=== PATIENT | female | born 1980 | race Caucasian/White ===

== ENCOUNTER 2019-03-28 12:30 | Emergency (ER) | payer MEDICAID ==
[~2019-03-28] VITALS: Ht 152.4 cm; Wt 41.6 kg
[2019-03-28 12:38] VITALS: Ht 152.4 cm; Wt 41.6 kg
--- NOTE | 2019-03-28 13:33 | ERD ---
ER Documentation Chief Complaint Chief Complaint vaginal bleeding x2days worse today referred by OB currently 4wks preg HPI This is a 39-year-old female presenting for vaginal bleeding x2 weeks. Patient is currently 4 weeks notes her last menstrual period was 3 weeks ago and since has been spotting daily. Notes spotting is only when wiping, denies need for tampons or pads, denies clots. Patient presented earlier with her PCP who referred her to the ED to rule out an ectopic . Patient denies any current pelvic pain, discharge, foul odor. No nausea, vomiting, abdominal pain. ROS All systems reviewed and are negative except as per history of present illness. Allergies Allergies: Coded Allergies: No Known Allergy (Unverified , 03/28/19) PMhx/Soc Medical and Surgical Hx: pt denies Medical Hx, pt denies Surgical Hx Hx Substance Use: No Hx Tobacco Use: No Smoking Status: Never smoker FmHx Family History: No diabetes, No coronary disease, No other Physical Exam Vitals Vital Signs Date Temp Pulse Resp B/P (MAP) Pulse Ox O2 O2 Flow FiO2 Time Delivery Rate 03/28/19 98.2 79 20 106/58 100 Room Air 15:44 (74) 03/28/19 98.5 86 20 100/59 100 12:38 (73) Physical Exam Const: No acute distress Head: Atraumatic Eyes: Normal Conjunctiva ENT: Normal External Ears, Nose and Mouth. Neck: Full range of motion. No meningismus. Resp: Clear to auscultation bilaterally. No wheezes, rales, rhonchi. Cardio: Regular rate and rhythm, no murmurs Abd: Soft, non tender, non distended. Normal bowel sounds. No right lower quadrant or suprapubic tenderness to palpation. : No visible discharge. No lesions, masses, or ulcerations. No cervical motion tenderness. No visible discharge. Cervical OS is closed with no visible POC, however significant bleeding is visualized in the vaginal vault. Skin: No petechiae or rashes Back: No midline or flank tenderness. No CVA tenderness. Ext: No cyanosis, or edema Neur: Alert and oriented x3. Appropriate speech, mood and affect. Face is symmetric. Speech is normal. CN II-XII intact. Moves all extremities equally. Ambulates with a strong, steady gait Psych: Normal Mood and Affect Result Diagram: 03/28/19 1429 03/28/19 1429 Results 24 hrs Laboratory Tests Test 03/28/19 13:39 03/28/19 14:29 POC Beta HCG, Qualitative POSITIVE White Blood Count 4.7 10^3/ul Red Blood Count 4.64 10^6/ul Hemoglobin 13.2 g/dl Hematocrit 41.2 % Mean Corpuscular Volume 88.8 fl Mean Corpuscular Hemoglobin 28.4 pg Mean Corpuscular Hemoglobin Concent 32.0 g/dl Red Cell Distribution Width 14.2 % Platelet Count 168 10^3/UL Mean Platelet Volume 11.1 fl Immature Granulocytes % 0.200 % Neutrophils % 60.9 % Lymphocytes % 31.7 % Monocytes % 7.0 % Eosinophils % 0.0 % Basophils % 0.2 % Nucleated Red Blood Cells % 0.0 /100WBC Immature Granulocytes # 0.010 10^3/ul Neutrophils # 2.9 10^3/ul Lymphocytes # 1.5 10^3/ul Monocytes # 0.3 10^3/ul Eosinophils # 0.0 10^3/ul Basophils # 0.0 10^3/ul Nucleated Red Blood Cells # 0.0 10^3/ul Prothrombin Time 15.1 Sec Prothrombin Time Ratio 1.2 INR International Normalized Ratio 1.18 Activated Partial Thromboplast Time 35.8 Sec Urine Color STRAW Urine Clarity SLIGHTLY CLOUDY Urine pH 7.0 Urine Specific [place] 1.002 Urine Ketones NEGATIVE mg/dL Urine Nitrite NEGATIVE mg/dL Urine Bilirubin NEGATIVE mg/dL Urine Urobilinogen NEGATIVE mg/dL Urine Leukocyte Esterase NEGATIVE Eliza/ul Urine Microscopic RBC 0 /HPF Urine Microscopic WBC 1 /HPF Urine Squamous Epithelial Cells FEW /HPF Urine Bacteria FEW /HPF Urine Hemoglobin 3+ mg/dL Urine Glucose NEGATIVE mg/dL Urine Total Protein NEGATIVE mg/dl Sodium Level 141 mmol/L Potassium Level 4.5 mmol/L Chloride Level 108 mmol/L Carbon Dioxide Level 24 mmol/L Anion Gap 9 Blood Urea Nitrogen 9 mg/dl Creatinine 0.57 mg/dl Est Glomerular Filtrat Rate mL/min > 60 mL/min Glucose Level 94 mg/dl Calcium Level 10.0 mg/dl Total Bilirubin 0.6 mg/dl Direct Bilirubin 0.00 mg/dl Indirect Bilirubin 0.6 mg/dl Aspartate Amino Transf (AST/SGOT) 27 IU/L Alanine Aminotransferase (ALT/SGPT) 20 IU/L Alkaline Phosphatase 56 IU/L Total Protein 7.6 g/dl Albumin 4.4 g/dl Globulin 3.20 g/dl Albumin/Globulin Ratio 1.37 Beta HCG, Quantitative 323.5 mIU/ml Procedures/MDM PROCEDURE: US Pelvis. CLINICAL INDICATION: vaginal bleeding TECHNIQUE: Multiple sonographic images of the pelvis were obtained utilizing a transabdominal technique. The images were reviewed on a PACS workstation. COMPARISON: None. FINDINGS: The uterus is normal in size and demonstrates a normal appearance of the myometrium. The uterus measures 7.8 x 5.0 x 6.0 cm in size. The endometrial stripe is heterogeneous in appearance and has the thickness of 6 mm. No intrauterine gestation is noted. There is a tiny amount of fluid within the endometrium. Normal Doppler flow is identified in both ovaries. The right ovary measures 4.9 x 4.2 x 4.2 cm. There is a 4.1 cm hemorrhagic cyst in the right ovary. The left ovary measures 2.8 x 1.2 x 1.9 cm. There is a small amount of free fluid in the right adnexa. RPTAT: AA IMPRESSION: No intrauterine gestation visualized. Heterogeneous endometrium with a tiny amount of fluid within. Hemorrhagic cyst in the right ovary with a small amount of free fluid in the right adnexa. Differential diagnosis includes early , missed or ectopic . Follow-up ultrasound and HCG levels is recommended. MDM: This is an otherwise healthy 39-year-old female who presents with complaints of vaginal bleeding x2 weeks. She notes her last menstrual period was 3 weeks ago and has since been spotting daily. Exam no visible POC. Ultrasound inconclusive for possible ectopic, threatened/spontaneous , and cannot confirm . Currently in no acute distress. No pelvic pain. Patient stable at discharge at this time. Advised to follow-up and return to ED within 48 hours for repeat hCG and ultrasound to confirm possible ectopic and/or threatened spontaneous . Patient and expressed verbal understanding and agreement to treatment plan, all questions addressed and answered. Patient given strict ED return precautions and is to return should pelvic pain or worsening bleeding increase in severity as soon as possible. Departure Diagnosis: Primary Impression: Vaginal bleeding in patient at less than 20 weeks gestation Condition: Stable Patient Instructions: Bleeding During Early ANTONIO BOTELLO PA-C March 28, 2019 13:33
[2019-03-28 15:44] VITALS: BP 106/58; PULSE 79; RESP 20
== END 2019-03-28 15:40 | disposition home or self-care (01) ==
LOC: FTE 12:30
DX: O20.9 Hemorrhage in early pregnancy, unspecified (principal); Z3A.01 Less than 8 weeks gestation of pregnancy
CPT/HCPCS: 76801; 80053; 81001; 81025; 84702; 85025; 85610; 85730; 86900; 86901; Z7502

== ENCOUNTER 2019-03-31 13:11 | Emergency (ER) | payer MEDICAID ==
[~2019-03-31] VITALS: Wt 40.9 kg
[2019-03-31 13:16] VITALS: BP 132/82; PULSE 78; RESP 18
--- NOTE | 2019-03-31 15:44 | ERD ---
ER Documentation Chief Complaint Chief Complaint 4 WEEKS , HERE FOR US HPI This is a 39-year-old female who was seen here 3 days ago for vaginal bleeding during . She is here for repeat ultrasound and beta hCG. She still states she has very mild bleeding without any clots. The bleeding is intermi ttent. She has no pain. No dysuria or frequency. No fever nausea or vomiting. ROS All systems reviewed and are negative except as per history of present illness. Allergies Allergies: Coded Allergies: No Known Allergy (Unverified , 03/28/19) PMhx/Soc Medical and Surgical Hx: pt denies Medical Hx, pt denies Surgical Hx Hx Alcohol Use: No Hx Substance Use: Yes (marijuana) Hx Tobacco Use: Yes Smoking Status: Current some day smoker FmHx Family History: No diabetes Physical Exam Vitals Vital Signs Date Temp Pulse Resp B/P (MAP) Pulse Ox O2 O2 Flow FiO2 Time Delivery Rate 03/31/19 99.0 78 18 132/82 99 13:16 (99) Physical Exam INITIAL VITAL SIGNS: Reviewed by me GENERAL: Awake, alert and oriented x 4, well appearing, nontoxic, speaking in full sentences. No acute distress HEAD: Atraumatic NECK: Supple. No masses. Full range of motion. No meningismus. No midline tenderness. RESPIRATORY: Clear to auscultation bilaterally. Symmetric chest wall rise. No wheezing or rales. No accessory muscle use. CV: Regular rate and rhythm. No murmurs, rubs, or gallops. ABDOMEN: Soft, non-distended. Nontender. Negative [place]. Negative McBurneys point tenderness. No CVA tenderness bilaterally. No guarding. No rebound. Results 24 hrs Laboratory Tests Test 03/31/19 14:16 03/31/19 14:28 Urine Color STRAW Urine Clarity SLIGHTLY CLOUDY Urine pH 7.0 Urine Specific [place] 1.006 Urine Ketones NEGATIVE mg/dL Urine Nitrite NEGATIVE mg/dL Urine Bilirubin NEGATIVE mg/dL Urine Urobilinogen NEGATIVE mg/dL Urine Leukocyte Esterase NEGATIVE Eliza/ul Urine Microscopic RBC 1 /HPF Urine Microscopic WBC 1 /HPF Urine Squamous Epithelial Cells FEW /HPF Urine Bacteria FEW /HPF Urine Hemoglobin 3+ mg/dL Urine Glucose NEGATIVE mg/dL Urine Total Protein NEGATIVE mg/dl Beta HCG, Quantitative 343.4 mIU/ml Procedures/MDM Is a 39-year-old female who is here for follow-up beta-hCG testing. She was seen here 3 days ago and her beta hCG was 323 today it has increased but only slightly to 343. Her ultrasound shows no findings of intrauterine or ectopic . She has a stable, probably benign right ovarian hemorrhagic cyst and overall there is no interval changes. Recommended she return in 2 or 3 more days for follow-up repeat exam or sooner if she has new or worsening pain. Patient counseled regarding my diagnostic impression and care plan. Prior to discharge all questions answered. Pt agrees with treatment plan and understands strict return precautions. Pt is instructed to follow up with primary care provider within 24-48 hours. Precautionary instructions provided including instructions to return to the ER if not improving or for any worsening or changing symptoms or concerns. Departure Diagnosis: Primary Impression: Vaginal bleeding in patient at less than 20 weeks gestation Condition: Stable MOISE FINN PA-C March 31, 2019 15:44
== END 2019-03-31 15:48 | disposition home or self-care (01) ==
LOC: FTE 13:11
DX: O20.9 Hemorrhage in early pregnancy, unspecified (principal); R10.2 Pelvic and perineal pain; O99.331 Smoking (tobacco) complicating pregnancy, first trimester; F17.210 Nicotine dependence, cigarettes, uncomplicated; Z3A.01 Less than 8 weeks gestation of pregnancy
CPT/HCPCS: 76801; 81001; 84702; Z7502

== ENCOUNTER 2019-04-04 09:36 | Inpatient (IN) | payer MEDICAID ==
[~2019-04-04] VITALS: Ht 157.5 cm; Wt 42.2 kg
[2019-04-04] MEDS ORDERED: ACETAMINOPHEN 500 MG TAB PO STA (10:07)
--- NOTE | 2019-04-04 10:36 | ERD ---
ER Documentation Chief Complaint Chief Complaint PT c/o VB X 3 weeks and 5 weeks . Follow up visit. HPI 39-year-old G5, P3 female presents with complaint of right lower quadrant abdominal pain and spotting for the past 3 weeks. Patient states that she is currently 5 weeks with a last menstrual of March 11, 2018. She was just here 3 days ago and there was no intrauterine seen on ultrasound. Patient states that she had pain in the right side acutely last night which self resolved. Going through 1 pad a day. States that she took 2 doses of optalgen which I informed her is not indicated in and she should discontinue. Denies any current abdominal pain. Denies any vomiting, fevers, diarrhea, lightheadedness, palpitations. ROS All systems reviewed and are negative except as per history of present illness. Allergies Allergies: Coded Allergies: No Known Allergy (Unverified , 03/28/19) PMhx/Soc Hx Alcohol Use: No Hx Substance Use: Yes (marijuana) Hx Tobacco Use: Yes FmHx Family History: No diabetes, No coronary disease, No other Physical Exam Vitals Vital Signs Date Temp Pulse Resp B/P (MAP) Pulse Ox O2 O2 Flow FiO2 Time Delivery Rate 04/04/19 98.1 57 18 100/50 100 Room Air 16:50 (67) 04/04/19 98.0 65 18 122/47 100 09:38 (72) Physical Exam Const: No acute distress Head: Atraumatic Eyes: Normal Conjunctiva ENT: Normal External Ears, Nose and Mouth. Neck: Full range of motion. No meningismus. Resp: Clear to auscultation bilaterally Cardio: Regular rate and rhythm, no murmurs Abd: Soft, non tender, non distended. Normal bowel sounds. No McBurney's. No Knapp's. Skin: No petechiae or rashes Back: No midline or flank tenderness Ext: No cyanosis, or edema Neur: Awake and alert Psych: Normal Mood and Affect Result Diagram: 04/04/19 1037 Results 24 hrs Laboratory Tests Test 04/04/19 10:37 White Blood Count 3.7 10^3/ul Red Blood Count 4.47 10^6/ul Hemoglobin 12.7 g/dl Hematocrit 39.2 % Mean Corpuscular Volume 87.7 fl Mean Corpuscular Hemoglobin 28.4 pg Mean Corpuscular Hemoglobin Concent 32.4 g/dl Red Cell Distribution Width 14.4 % Platelet Count 149 10^3/UL Mean Platelet Volume 11.5 fl Immature Granulocytes % 0.300 % Neutrophils % 52.9 % Lymphocytes % 34.0 % Monocytes % 12.8 % Eosinophils % 0.0 % Basophils % 0.0 % Nucleated Red Blood Cells % 0.0 /100WBC Immature Granulocytes # 0.010 10^3/ul Neutrophils # 2.0 10^3/ul Lymphocytes # 1.3 10^3/ul Monocytes # 0.5 10^3/ul Eosinophils # 0.0 10^3/ul Basophils # 0.0 10^3/ul Nucleated Red Blood Cells # 0.0 10^3/ul Urine Color RED Urine Clarity SLIGHTLY CLOUDY Urine pH 6.0 Urine Specific [place] 1.013 Urine Ketones NEGATIVE mg/dL Urine Nitrite NEGATIVE mg/dL Urine Bilirubin NEGATIVE mg/dL Urine Urobilinogen NEGATIVE mg/dL Urine Leukocyte Esterase NEGATIVE Eliza/ul Urine Microscopic RBC 10 /HPF Urine Microscopic WBC 2 /HPF Urine Squamous Epithelial Cells MODERATE /HPF Urine Bacteria FEW /HPF Urine Mucus FEW /HPF Urine Hemoglobin 3+ mg/dL Urine Glucose NEGATIVE mg/dL Urine Total Protein NEGATIVE mg/dl Beta HCG, Quantitative 366.5 mIU/ml Current Medications Medications Dose Sig/Nick Start Time Status Last (Trade) Ordered Route PRN Stop Time Admin Dose Reason Admin 1,000 mg ONCE STAT 04/04/19 DC 04/04/19 Acetaminophen PO 10:07 04/04/19 10:20 (Tylenol 10:08 Tab) Procedures/MDM DIAGNOSTIC IMAGING REPORT Patient: STEFANIE BEDOLLA : 1980 Age: 39 Sex: F [id number] DOS: 04/04/19 1007 Ordering MD: NADIA BROOKS Location: [facility] Room/Bed: PROCEDURE: US OB. CLINICAL INDICATION: Vaginal bleeding in . TECHNIQUE: Transabdominal and endovaginal imaging of the uterus is available for review COMPARISON: None available FINDINGS: No intrauterine is identified. The endometrial stripe is homogeneous and measures 3.8 mm in thickness. The uterus is otherwise unremarkable. There is a right adnexal cyst measuring 4.8 x 4.4 x 4.3 cm with low-level internal echoes and central area of increased echogenicity. Moderate free fluid is noted within the pelvis. IMPRESSION: 1. No intrauterine identified. There are no adnexal masses. Correlation with serial beta HCGs and repeat pelvic ultrasound as clinically indicated, is recommended, as ectopic is not excluded on this examination. 2. Moderate free fluid in the pelvis. 3. 4.8 x 4.4 x 4.3 cm right adnexal complex cyst, likely a hemorrhagic cyst. Close attention on follow-up imaging is advised. RPTAT: HH .Maria Isabel Aguilera MD, MD Date Time Electronically viewed and signed by .Maria Isabel Aguilera MD, MD on 04/04/2019 12:33 .G/ CC: NADIA BROOKS [id number] MDM: Beta-hCG is not been doubling every 2 days but rather has been remaining low in the 400s over last 3 visits which occurred over time of appx one week. In addition the hemorrhagic cyst has been growing, therefore there is concern for possible ectopic. I spoke to Dr Trejo around 1 PM and she stated she will come to see the patient. Patient was seen approximately 6:[address] Trejo relayed to me that she was going to admit the patient for observation and possible surgery. Patient admitted. Departure Diagnosis: Primary Impression: Vaginal bleeding in patient at less than 20 weeks gestation Additional Impression: Pelvic pain affecting Trimester: first trimester Qualified Codes: O26.891 - Other specified related conditions, first trimester; R10.2 - Pelvic and perineal pain Condition: Serious NADIA BROOKS April 04, 2019 10:36
[2019-04-04] MEDS ORDERED: CEFAZOLIN 2 GM/50 ML (PMX) 50 ML IVPB ONE (19:00)
--- NOTE | 2019-04-04 19:00 | CONS ---
Assessment/Plan Assessment/Plan Hospital Course (Demo Recall) Lower abdominal pain Positive test, hCG plateaued and did not rise appropriately consistent with nonviable Cannot rule out SAB versus ectopic Adnexal cystic mass with moderate amount of free fluid in the pelvis. Patient hemodynamically stable I discussed with the patient possibility of ectopic cannot be ruled out I recommended the patient to proceed with D&C with or without laparoscopy/laparotomy for evaluation o and rule out ectopic as well as possible ovarian cystectomy versus salpingectomy versus salpingostomy Risk and benefit of procedure including risk of infection, bleeding, damage to surrounding structures including bowel and bladder and risk of blood transfusion including but not limited to blood borne infection including HIV, hepatitis B and C and transfusion reaction discussed the patient in detail and informed consent was obtained. Patient was understanding all above risks. All questions were answered to patient's best satisfaction. 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 Patient understands the possibility of losing A tube or ovary or both. She also understands possibility of risk of blood transfusion. Possibility of a conversion of the procedure to open laparotomy has been discussed with the patient. Patient agreed with above plan. She also understands that her case will be signed out to the upcoming labors and plan of care may slightly change depends on the upcoming banker mason and that will be discussed with her. Consultation Date/Type/Reason Admit Date/Time March 31, 2019 Date of Consultation: April 04, 2019 Type of Consult Gynecology consultation Reason for Consultation Rule out ectopic Date/Time of Note DATE: 04/04/19 TIME: 18:51 Hx of Present Illness 39-year-old G5, P3 female with amenorrhea for 4 weeks and 4 days and positive test, presented to emergency room with complaint of lower abdominal pain. She had serum hCG few days ago and her level was 300s. Her serum hCG today is a still in 300s range. Patient reported 10 out of 10 pain in the right lower abdomen with radiation to the hip and thigh. She denies any dizziness, lightheadedness, shortness of breath or chest pain. Ultrasound that showed evidence of free fluid in the pelvis with no IUP and a adnexal cyst. Review of serum hCG showed that it is been plateaued. Patient reports started having light vaginal bleeding. Subjective hx not possible: other Constitutional: no complaints, improved; No chills, No diaphoresis, No disoriented, No febrile, No poor po, No requiring IVF, No requiring O2, No other Eyes: No no complaints, No pain, No discharge, No redness, No visual change, No other ENT: No no complaints, No bleeding, No pain, No congestion, No discharge, No dysphagia, No sore throat, No other Respiratory: No no complaints, No pain, No cough, No pleuritic pain, No shortness of breath, No sputum, No wheezing, No other Cardiovascular: No no complaints, No chest pain, No edema, No lightheadedness, No orthopenea, No palpitations, No paroxysmal nocturnal dyspnea, No other Gastrointestinal: pain, blood; No no complaints, No constipation, No decreased appetite, No diarrhea, No flatus, No nausea, No passing stool, No vomiting, No other Genitourinary: bleeding; No no complaints, No dysuria, No discharge, No flank pain, No hematuria, No other Musculoskeletal: No no complaints, No back pain, No bone/joint pain, No neck pain, No restricted range of motion, No swelling, No other Skin: No no complaints, No bruising, No erythema, No laceration, No pruritis, No rash, No skin lesions, No other Neurologic: No no complaints, No confusion, No dizziness, No focal-weakness, No headache, No syncope, No seizure, No other Endocrine: No no complaints, No polyuria, No polydypsia, No dry skin, No temp intolerance, No other Lymphatic: No no complaints, No adenopathy, No tender nodes, No lymphadema, No other Psychological: No no complaints, No nl mood/affect, No anxiety, No confusion, No depression, No suicidal, No other Immunologic: No no complaints, No immunodeficiency, No pruritis, No rhinitis, No urticaria, No other Past Medical History Past medical history: Denies any medical problem 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 Used to smoke 3 to 4 cigarettes a day. Denies drinking alcohol or using any drugs. Smoking Status: Light tobacco smoker Exam/Review of Systems Exam Vitals Vital Signs Date Temp Pulse Resp B/P (MAP) Pulse Ox O2 O2 Flow FiO2 Time Delivery Rate 04/04/19 98.1 57 18 100/50 100 Room Air 16:50 (67) Constitutional: alert, oriented, well developed Psych: no complaints, nl mood/affect Head: normocephalic, atraumatic Eyes: nl conjunctiva, EOMI ENMT: nl external ears & nose, nl lips & teeth Neck: supple Respiratory: clear to auscultation, normal air movement Cardiovascular: regular rate and rhythm, nl pulses Gastrointestinal: soft, nl liver, spleen, non-tender Genitourinary - Female: other (There is a small amount of dark blood in the vault. There is no CMT tenderness. There is no tenderness in adnexa. Uterus is about 9 to 10 cm size and retroverted.) Musculoskeletal: nl extremities to inspection Extremities: normal pulses Neurological: WATER TENDER II-XII intact Results Result Diagram: 04/04/19 1037 Results 24hrs Laboratory Tests Test 04/04/19 10:37 White Blood Count 3.7 #L Red Blood Count 4.47 Hemoglobin 12.7 Hematocrit 39.2 Mean Corpuscular Volume 87.7 Mean Corpuscular Hemoglobin 28.4 L Mean Corpuscular Hemoglobin Concent 32.4 Red Cell Distribution Width 14.4 Platelet Count 149 Mean Platelet Volume 11.5 H Immature Granulocytes % 0.300 Neutrophils % 52.9 Lymphocytes % 34.0 Monocytes % 12.8 H Eosinophils % 0.0 Basophils % 0.0 Nucleated Red Blood Cells % 0.0 Immature Granulocytes # 0.010 Neutrophils # 2.0 Lymphocytes # 1.3 Monocytes # 0.5 Eosinophils # 0.0 Basophils # 0.0 Nucleated Red Blood Cells # 0.0 Urine Color RED Urine Clarity SLIGHTLY CLOUDY A Urine pH 6.0 Urine Specific [place] 1.013 Urine Ketones NEGATIVE Urine Nitrite NEGATIVE Urine Bilirubin NEGATIVE Urine Urobilinogen NEGATIVE Urine Leukocyte Esterase NEGATIVE Urine Microscopic RBC 10 H Urine Microscopic WBC 2 Urine Squamous Epithelial Cells MODERATE Urine Bacteria FEW A Urine Mucus FEW A Urine Hemoglobin 3+ H Urine Glucose NEGATIVE Urine Total Protein NEGATIVE Beta HCG, Quantitative 366.5 Imaging Imaging AMENDMENT: 04/04/2019 3:29:50 PM Maria Isabel Aguilera M.d Flow is demonstrated to the right ovary. PROCEDURE: US OB. CLINICAL INDICATION: Vaginal bleeding in . TECHNIQUE: Transabdominal and endovaginal imaging of the uterus is available for review COMPARISON: None available FINDINGS: No intrauterine is identified. The endometrial stripe is homogeneous and measures 3.8 mm in thickness. The uterus is otherwise unremarkable. There is a right adnexal cyst measuring 4.8 x 4.4 x 4.3 cm with low-level internal echoes and central area of increased echogenicity. Moderate free fluid is noted within the pelvis. IMPRESSION: 1. No intrauterine identified. There are no adnexal masses. Correlation with serial beta HCGs and repeat pelvic ultrasound as clinically indicated, is recommended, as ectopic is not excluded on this examination. 2. Moderate free fluid in the pelvis. 3. 4.8 x 4.4 x 4.3 cm right adnexal complex cyst, likely a hemorrhagic cyst. Close attention on follow-up imaging is advised. ETIENNE ALONZO MD April 04, 2019 19:00
[2019-04-04] MEDS: LACTATED RINGER'S 1,000 ML IV SCH (19:40)
[2019-04-04 22:40] VITALS: BP 100/58; PULSE 59; RESP 18
[2019-04-04] MEDS ORDERED: KETOROLAC 30 MG INJ IV STA (22:46)
[2019-04-04 23:38] VITALS: Ht 157.5 cm; Wt 42.2 kg
[2019-04-05] VITALS (18 sets, daily range): BP systolic 91–139; BP diastolic 44–69; PULSE 56–88; RESP 11–22
--- NOTE | 2019-04-05 00:51 | QN ---
Documentation Comment preop note 39y.o A1 lmp 03/04/19 lasted for 7days had vaginal bleeding which started 03/20/19 again up to now x3 ED visit 03/28 and 03/31 and today , x3 U/S no IUP Rt ovarian cyst 4.8cm (poss hemorrhagic cyst but poss dermoid?) with moderate amount free fluid in cul de sac uterus has sonolucency ? echogenecity plan suction curettage f/b exp lap poss rt ovarian cystectomy poss RSO and further indicated informed consent obtained after explain the procedure in detail ,and risks from surgery and anesthesia from minor to serious APPLE PATTERSON MD April 05, 2019 00:51
[2019-04-05] MEDS ORDERED: PROPOFOL 0 ML ONE (01:28)
[2019-04-05] MEDS ORDERED: MIDAZOLAM 1 MG/ML 2 ML INJ ONE ×2 (01:29→11:07)
[2019-04-05] MEDS ORDERED: FENTAnyl 50 MCG/ML VIAL ONE ×2 (01:29→11:07)
[2019-04-05] MEDS ORDERED: ONDANSETRON 4 MG INJ ONE ×2 (01:29→11:07)
[2019-04-05] MEDS ORDERED: KETOROLAC 30 MG INJ ONE (01:30)
[2019-04-05] MEDS ORDERED: ROCURONIUM 50 MG INJ ONE ×2 (01:34→11:06)
[2019-04-05] MEDS: LACTATED RINGER'S 1,000 ML IV SCH ×3 (06:22→16:20)
--- NOTE | 2019-04-05 11:04 | PREAC ---
Date/Time of Note Date/Time of Note DATE: 04/05/19 TIME: 11:01 Anesthesia Eval and Record Evaluation Time Pre-Procedure Interview DATE: 04/05/19 TIME: 11:01 Age 39 Sex female NPO: 8 hrs Preoperative diagnosis right ovarian cyst, rule out ectopic Planned procedure suction d&c, exp lap possible right salpingectomy, possible right SO Past Medical History Past Medical History: Includes : : (5), Para: (3), Gestational age: (4-5 weeks) Surgery & Anesthesia Issues No known issue Meds Anticoagulation: No Beta Norberto within 24 hr: No Reason Beta Norberto not given: Pt. not on B-Norberto Current Medications Lactated Ringer's 1,000 ml @ 125 mls/hr Q8H IV Last administered on 04/05/19at 06:22; Admin Dose 125 MLS/HR; Start 04/04/19 at 18:48 Meds reviewed: Yes Allergies Coded Allergies: No Known Allergy (Unverified , 03/28/19) Allergies Reviewed: Yes Labs/Studies Labs Reviewed: Reviewed by anesthesiologist Result Diagram: 04/04/19201004/04/192010 Laboratory Tests 04/04/19 20:11 Blood Bank Test 04/04/19 20:11 Antibody Screen NEGATIVE Blood Type AB POSITIVE test: N/A Pre-procedure Exam Last vitals Vital Signs Date Temp Pulse Resp B/P (MAP) Pulse Ox O2 O2 Flow FiO2 Time Delivery Rate 04/05/19 98.6 78 18 104/59 100 Room Air 07:50 (74) Airway: Adequate mouth opening, Adequate thyromental dist Mallampati: Mallampati II Teeth: Normal Lung: Normal Heart: Normal ASA Physical Status ASA physical status: 2 Emergency: E Planned Anesthetic General/MAC: ETT Neuraxial: Spinal Planned Pain Management Sub-arachniod narcotics, Parenteral pain med Pre-operative Attestations Prior to commencing anesthesia and surgery, the patient was re-evaluated, there was verification of: *The patient's identity *The results of appropriate recent lab work and preoperative vital signs *The above evaluation not changing prior to induction *Anesthetic plan, risk benefits, alternative and complications discussed with patient/family; questions answered; patient/family understands, accepts and wishes to proceed. Drake Chandra M.D. April 05, 2019 11:04
[2019-04-05] MEDS ORDERED: CEFAZOLIN 1 GM INJ ONE (11:06)
[2019-04-05] MEDS ORDERED: NEOSTIGMINE 3 MG/3 ML SYRINGE ONE (11:06)
[2019-04-05] MEDS ORDERED: GLYCOPYRROLATE 0.4 MG INJ ONE (11:06)
[2019-04-05] MEDS ORDERED: PROPOFOL 20 ML ONE (11:06)
[2019-04-05] MEDS ORDERED: DEXAMETHASONE 4 MG/ML 5 ML INJ ONE (11:07)
[2019-04-05] MEDS ORDERED: morphine SULFATE/PF (10 MG/10 ML) INJ ONE (11:13)
[2019-04-05] MEDS ORDERED: PHENYLephrine (100 MCG/ML) 10ML SYG ONE (11:45)
--- NOTE | 2019-04-05 13:23 | SIPON ---
Date/Time of Note Date/Time of Note DATE: 04/05/19 TIME: 13:18 Operative Report Preoperative Diagnosis Rt hemorrhagi c cyst , R/o ectopic pregnanacy Postoperative Diagnosis hemoperitoneum ruptured right hemorrhagic cyst right tubal ( ampullary) cervical lesion at 1oclock Operation/Procedure Performed suction curettage cervical punch biopsy exp lap right ovarian cystectomy right salphingectomy Surgeon see signature line pharmacy sales assistant LEW jiménez Anesthesia: general, spinal Estimated blood loss: 10 - 50 ml's Transfusion Required none Specimen cervical biopsy uterine curettings right ovarian cyst right tube with intact ectopic pregnanacy Grafts/Implants none Complications none APPLE PATTERSON MD April 05, 2019 13:23
--- NOTE | 2019-04-05 13:24 | PAC ---
Date/Time of Note Date/Time of Note DATE: 04/05/19 TIME: 13:23 Post-Anesthesia Notes Post-Anesthesia Note Last documented vital signs Vital Signs Date Temp Pulse Resp B/P (MAP) Pulse Ox O2 O2 Flow FiO2 Time Delivery Rate 04/05/19 98.6 78 18 104/59 100 Room Air 07:50 (74) Activity: WNL Respiratory function: WNL Cardiovascular function: WNL Mental status: Baseline Pain reasonably controlled: Yes Hydration appropriate: Yes Nausea/Vomiting absent: Yes Drake Chandra M.D. April 05, 2019 13:24
[2019-04-05] MEDS ORDERED: NALOXONE (0.4 MG/ML) INJ IV PRN (13:30)
[2019-04-05] MEDS ORDERED: EPHEDrine SULFATE 50 MG/5 ML SYG IV PRN (13:30)
[2019-04-05] MEDS ORDERED: ALBUTEROL 0.083% (NEB) 2.5 MG/3 ML AMP HHN PRN (13:30)
[2019-04-05] MEDS ORDERED: hydrALAzine 20 MG INJ IV PRN (13:30)
[2019-04-05] MEDS ORDERED: TRIMETHOBENZAMIDE 100 MG/ML VIAL IM PRN (13:30)
[2019-04-05] MEDS ORDERED: DIPHENHYDRAMINE 50 MG INJ IV PRN ×2 (13:30)
[2019-04-05] MEDS ORDERED: FENTAnyl 50 MCG/ML VIAL IV PRN ×3 (13:30)
[2019-04-05] MEDS ORDERED: LABETALOL HCL 20MG INJ IV PRN (13:30)
[2019-04-05] MEDS ORDERED: NALBUPHINE HCL (10 MG/1 ML) INJ IV PRN (13:30)
[2019-04-05] MEDS ORDERED: ZOLPIDEM 5 MG TAB PO PRN (13:30)
[2019-04-05] MEDS ORDERED: ONDANSETRON 4 MG INJ IV PRN ×2 (13:30)
[2019-04-05] MEDS ORDERED: OXYCODONE/ACETAMINOPHEN (5/325) TAB PO PRN ×2 (13:30)
[2019-04-05] MEDS ORDERED: MEPERIDINE 25 MG INJ IV PRN (13:30)
[2019-04-05] MEDS ORDERED: IPRATROPIUM (NEB) 0.5 MG/2.5 ML AMP HHN PRN (13:30)
[2019-04-05] MEDS ORDERED: HYDROmorphONE 1 MG/5 ML IV SYRINGE IV PRN ×3 (13:30)
[2019-04-05] MEDS ORDERED: MIDAZOLAM 1 MG/ML 2 ML INJ IV PRN (13:30)
[2019-04-05] MEDS ORDERED: HYDROmorphONE 0.5 MG/0.5 ML SYG IV PRN ×2 (13:30)
[2019-04-05] MEDS: KETOROLAC 30 MG INJ IV PRN (16:52)
[2019-04-05] MEDS ORDERED: METOCLOPRAMIDE 10 MG INJ IV PRN (17:00)
[2019-04-06] MEDS: LACTATED RINGER'S 1,000 ML IV SCH ×4 (01:15→20:53)
[2019-04-06] MEDS: KETOROLAC 30 MG INJ IV PRN ×2 (01:15→07:58)
[2019-04-06 02:00] VITALS: BP 97/55; PULSE 65; RESP 18
[2019-04-06 07:52] VITALS: BP 89/52; PULSE 66; RESP 18
--- NOTE | 2019-04-06 09:39 | PN ---
Date/Time of Note Date/Time of Note DATE: 04/06/19 TIME: 09:37 Assessment/Plan Lines/Catheters IV Catheter Type (from Nrsg): Saline Lock Randle in Place (from Nrsg): Yes Assessment/Plan Assessment/Plan Status post D&C, Exploratory laparotomy, right salpingectomy for ectopic and right ovarian cystectomy Advance diet as tolerated DC Randle Encourage patient to ambulate Continue with routine postop care Subjective 24 Hr Interval Summary Postop day #1 Status post D&C, Exploratory laparotomy, right salpingectomy for ectopic and right ovarian cystectomy Constitutional: no complaints Feeding: advancing diet Pain Control: well controlled Exam/Review of Systems Vital Signs Vitals Vital Signs Date Temp Pulse Resp B/P (MAP) Pulse Ox O2 O2 Flow FiO2 Time Delivery Rate 04/06/19 98.5 68 16 91/53 (66) 100 14:41 04/05/19 Room Air 15:00 04/05/19 3.0 14:36 Intake and Output 04/05/19 04/05/19 04/06/19 1515:00 23:00 07:00 IntakeIntake Total 3400 ml 915 ml 1905 ml OutputOutput Total 850 ml 1200 ml BalanceBalance 2550 ml 915 ml 705 ml Exam Free Text/Dictation Patient complaining of some mild incisional pain She is stable and afebrile Constitutional: alert, oriented, well developed Additional Comments Dressing clean dry and intact Results Result Diagram: 04/06/19 1111 04/04/192010 KRYSTLE ARITA MD April 06, 2019 09:39
[2019-04-06] MEDS: OXYCODONE/ACETAMINOPHEN (5/325) TAB PO PRN ×2 (14:24→20:53)
[2019-04-06] MEDS ORDERED: OXYCODONE/ACETAMINOPHEN (5/325) TAB PO PRN (14:30)
[2019-04-06 14:41] VITALS: BP 91/53; PULSE 68; RESP 16
[2019-04-06 20:00] VITALS: BP 88/53; PULSE 66; RESP 18
[2019-04-06 20:15] VITALS: BP 99/59; PULSE 55; RESP 18
[2019-04-06] MEDS: IBUPROFEN 600 MG TAB PO PRN (20:53)
[2019-04-07 02:00] VITALS: BP 101/61; PULSE 72; RESP 17
[2019-04-07] MEDS: OXYCODONE/ACETAMINOPHEN (5/325) TAB PO PRN ×3 (05:09→17:30)
[2019-04-07] MEDS: LACTATED RINGER'S 1,000 ML IV SCH (06:16)
--- NOTE | 2019-04-07 10:25 | OPR ---
DATE OF OPERATION: 04/05/2019 PREOPERATIVE DIAGNOSIS: Right ovarian cyst, possible hemorrhagic, rule out ectopic , possib le status post miscarriage. POSTOPERATIVE DIAGNOSIS: Ruptured right ovarian cyst, also leaking and right ampullary and hemoperitoneum. OPERATION PERFORMED: Suction curettage. Mini lap, right ovarian cystectomy and the right salpingect ayla. ANESTHESIA: General and spinal. ANESTHESIOLOGIST: Dr. Chandra. SURGEON: Brigette Carey MD YARD ENGINEER: Ryan who is a [employer] tech. ESTIMATED BLOOD LOSS: From the surgery less than 50 mL. There was about 100 mL of hemoperitoneum. PROCEDURE: Under the proper induction of spinal anesthesia for postop pain management and under gene ral anesthesia, the patient was placed in the semi-lithotomy position, and the perineal and vagina wa ll was prepped and draped in usual aseptic manner. Bimanual examination, uterus was retroverted, ret roflexed and then size is normal and then consistency was just slightly soft, but there was nothing i n the pelvic area except in the right side, there was some fullness. Weighted speculum was introduce d. Anterior lip of the cervix was grasped with some difficult time because somehow the cervix is not soft, somehow it is firm, which was grasped with single tooth tenaculum and finally visualized. The re was tissue in the 1 o'clock direction measuring about 0.5 cm and the uterine cavity was sounded, w hich was 8 cm in depth and also was dilated gradually with a Lea dilator and a size 7 suction curet straight was introduced and the entire uterine cavity was suctioned without obtaining much. This wa s followed by sharp curette in all directions with obtaining very scanty tissue which was sent with r etrieval of the suction curettage. Because of the little growth on the 1 o'clock direction, a punch biopsy was done on that lesion and sent for the pathology. After the suction curettage was done, the patient kept in the same position with flatter stirrups. A small Pfannenstiel incision was made. I ncision was carried down through the subcutaneous tissue to the anterior recti fascia which was incis ed transversely in length of the incision. The fascial flap was created by blunt and sharp dissectio n of tendinous attachment upward and downward and the 2 rectus muscles split in midline, peritoneal c avity was entered. Upon entering the peritoneal cavity, there was fresh red blood escaping from the cavity and the Juno, a small size, was introduced to have better exposure. The blood was suctioned out and the pelvic exam was done. Uterus felt to be normal. There was a cystic structure which was on the right side, there was leaking, which was ruptured, when I was manipulating further. The flui d somehow it looks clear and initially suction trap was used for the peritoneal fluid, but it was hem operitoneum, so discarded. It was noticed that the cystic cavities approximately 5 cm in diameter, h as a little hole leaking fluid, which I also by bimanual plating. So it was completely collap sed with some fluid left inside. Then, it was noticed that right ampullary was dilated and bluish, a pproximately 2 cm in diameter on the ampullary portion and noticed that there was a there. So the right fallopian tube including the ampullary all the way and using peon and this was cut off and the pedicle was doubly transfixed with #1 chromic catgut. After the right salpingectomy done and further suction of the hemoperitoneum done and removed from the right ovary and the remnant was clos ed with 2-0 chromic catgut in horizontal mattress manner. A piece of Interceed was fixed on the ovar elisa surface preventing the adhesion. No bleeder was noted. Vigorous irrigation was done and removed all the blood from the operative field. The lap count was correct and the Juno was removed. Surg ical site rechecked, which was intact. After another set of lab count, which was correct and parieta l peritoneum was closed using 0 chromic catgut, muscle closed with 0 chromic catgut in continuous man ner. The fascia closed with a #1 Vicryl in continuous manner. Subcutaneous tissue irrigated with wa ter. This layer was approximated with a 2-0 plain, and skin closed with a 3-0 Monocryl in a subcutic ular manner. Steri-Strip applied. A pressure dressing applied. Estimated blood loss approximately 30 mL from the procedure, maybe less and the patient withstood procedure well and was sent to the rec overy room in stable condition. Dictated By: BRIGETTE MCCORMICK/LILIBETH Conf#: [id number] DID#: [id number] CC: ETIENNE ALONZO MD;*End*
[2019-04-07] MEDS: IBUPROFEN 600 MG TAB PO PRN (15:15)
--- NOTE | 2019-04-07 16:13 | PD.PPDC ---
DIETETIC TECHNICIAN REGISTERED Discharge Instruction Diagnosis [id number] Final Diagnosis: [id number] right tubal prenancy intact and rt ovarian cyst ruptured hemoperitoneum Condition [id number] Patient Condition: Znzwf4i Stable Diet Pnbxk6Wd Diet: Syhxv0t Resume Regular Diet Activity/Restrictions [id number] Activity: Kqrqq0t May Shower [id number] Restrictions: Avndd2u No Exercising No Lifting No Sexual Activity Nothing in the Vagina No Valders No Tampons, douche Wound/Drain Care Instructions [id number] Wound/Drain Care Instructions: Ynfuu0a Wash with soap and water Keep clean and dry Follow-up Follow-up with Physician: 2, Week/Weeks Return to clinic for Jtsuk6Cz SMOKE EATER Instructions: Jdojz3c Fever greater than 101 Chills Worsening abdominal pain Excessive Vaginal Bleeding More than 2 pads per hour Unable to tolerate diet [id number] Surgical Instructions: Skwfu1j Incisional Drainage Incisional Redness APPLE PATTERSON MD April 07, 2019 16:13
--- NOTE | 2019-04-07 16:24 | DS ---
Date/Time of Note Date/Time of Note DATE: 04/07/19 TIME: 16:14 Discharge Summary Admission/Discharge Info Admit Date/Time April 04, 2019 at 18:51 Discharge Date/Time apr 07 2019 Discharge Diagnosis rt ubal rt ruptured ovarian cyst hemoperitoneum cervical lesion Patient Condition: Stable Procedures suction curettage exp lap rt salphingectomy rt ovarian cystectomy puch biopsy of cervix Hx of Present Illness 39y.o A1 with pelvic pain with vaginal bleeding u/s revealed rt ovarian cyst with mod amount free fluid ,underwent op found intact rt ampullary with ruptured rt ovarian cyst suction curettage and cervical biopsy and rt salphingectomy and rt ovarian cystectomy/ Hospital Course postoperatively had unevenful course discharge with motrin and tylenol #3 colace will be f/u in my office in 2weeks with routine postop instructions Home Meds No Active Prescriptions or Reported Meds Follow-up Plan 2weeks Primary Care Provider [facility] Time spent on discharge: < 30 minutes APPLE PATTERSON MD April 07, 2019 16:24
== END 2019-04-07 18:15 | disposition home or self-care (01) | DRG 817 ==
LOC: FTE 09:36 → PP2 18:51
PROVIDERS: ADMIT Obstetrics & Gynecology Obstetrics; ATTEND Obstetrics & Gynecology Obstetrics
PROC: 0UT50ZZ Resection of Right Fallopian Tube, Open Approach (ICD-10-PCS; 2019-04-05)
PROC: 0UB00ZZ Excision of Right Ovary, Open Approach (ICD-10-PCS; 2019-04-05)
PROC: 0UDB7ZZ Extraction of Endometrium, Via Natural or Artificial Opening (ICD-10-PCS; 2019-04-05)
PROC: 0UBC7ZX Excision of Cervix, Via Natural or Artificial Opening, Diagnostic (ICD-10-PCS; 2019-04-05)
PROC: 10T20ZZ Resection of Products of Conception, Ectopic, Open Approach (ICD-10-PCS; principal; 2019-04-05 10:30)
DX: O00.101 Right tubal pregnancy without intrauterine pregnancy (principal); K66.1 Hemoperitoneum; O34.81 Maternal care for other abnormalities of pelvic organs, first trimester; N83.201 Unspecified ovarian cyst, right side; Z3A.01 Less than 8 weeks gestation of pregnancy
CPT/HCPCS: 76801; 76817; 80048; 81001; 84702; 85014; 85018; 85025; 86850; 86900; 86901; 87086; 88305; J0690; J1100; J1170; J1885; J2175; J2250; J2274; J2370; J2405; J2710; J2765; J3010; J7120